=== PATIENT | male | born 1955 | race African-American/Black ===

== ENCOUNTER 2024-12-22 06:29 | Day surgery (SDC) | payer OTHER ==
[2024-12-19 09:21] VITALS: BMI 30.7
[2024-12-22] MEDS ORDERED: ONDANSETRON 4 MG/2 ML VIAL IVPUSH PRN (10:08)
[2024-12-22] MEDS ORDERED: ONDANSETRON 4 MG/2 ML VIAL ONE (10:16)
[2024-12-22] MEDS ORDERED: PROPOFOL 20 ML ONE (10:16)
[2024-12-22] MEDS ORDERED: DEXAMETHASONE SOD PHOSPHATE 4 MG/1 ML VIAL ONE (10:16)
[2024-12-22] MEDS ORDERED: MIDAZOLAM HCL 2 MG/2 ML SINGLE DOSE VIAL ONE (10:17)
[2024-12-22] MEDS: LACTATED RINGERS SOLUTION 1,000 ML IV SCH (12:30)
[2024-12-22 14:01] VITALS: RESP 18
[2024-12-22 14:29] VITALS: BP 130/80; PULSE 72; TEMP 97
== END 2024-12-22 14:29 | disposition home or self-care (01) ==
LOC: JASU-SURG 06:29
PROVIDERS: ATTEND Urology
PROC: 0TND8ZZ Release Urethra, Via Natural or Artificial Opening Endoscopic (ICD-10-PCS; 2024-12-22)
PROC: 0VT08ZZ Resection of Prostate, Via Natural or Artificial Opening Endoscopic (ICD-10-PCS; principal; 2024-12-22 10:00)
DX: C61 Malignant neoplasm of prostate (principal); N40.1 Benign prostatic hyperplasia with lower urinary tract symptoms; N35.912 Unspecified bulbous urethral stricture, male; R35.0 Frequency of micturition; R39.12 Poor urinary stream
CPT/HCPCS: 82962; 88307-TC; 88342-TC; 94760